=== PATIENT | male | born 2000 | race African-American/Black ===

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

== ENCOUNTER 2018-02-11 16:05 | Emergency (ER) | payer OTHER ==
[~2018-02-11] VITALS: Ht 172.7 cm; Wt 59.0 kg
[2018-02-11] MEDS ORDERED: NKM (16:14)
--- NOTE | 2018-02-11 16:58 | Diagnostic Imaging Report ---
Indication: Foreign body sensation in throat Technique: 2 views of the neck with soft tissue technique Comparison: none Findings: No prevertebral soft tissue swelling. No definite radiopaque foreign body demonstrated. Normal epiglottis. No evidence of glottic narrowing or hypopharyngeal distention. Impression: Negative. No evidence of radiopaque foreign body
--- NOTE | 2018-02-11 17:02 | Emergency Room Report ---
History of Present Illness General Chief Complaint: Foreign Body Source: Patient Present Illness HPI 17 YO male presents to the ED C/o 08/[address] since last night. Pt. describes a sharp FB sensation. pt. states pain worse with swallowing. Denies inability to swallow his own saliva. Pt. Denies fevers, chills MEDRANO, neck stiffness. Pt. reports initially thought it was mucus in his throat but after many attempts to clear it he has not been successful. Pt denies Nasal congestion or rhinorrhea. Pt. states pain did not occur after eating. it began when he was trying to sleep. Denies inability or difficulty breathing. Pt. denies loud breath sounds or inability to pass food. Denies swollen tender lymph nodes. Allergies: Coded Allergies: No Known Allergies (Unverified , 04/20/12) Patient History Past Medical History: see triage record Past Surgical History: none Pertinent Family History: none Reviewed Nursing Documentation: PMH: Agreed; PSxH: Agreed Nursing Documentation-PMH Hx Asthma: Yes Review of Systems All Other Systems: negative except mentioned in HPI Physical Exam Vital Signs Date Time Temp Pulse Resp B/P (MAP) Pulse Ox O2 Delivery O2 Flow Rate FiO2 02/11/18 16:09 98.2 78 16 108/62 96 Room Air Sp02 EP Interpretation: reviewed, normal General Appearance: no apparent distress, alert, GCS 15, non-toxic Head: normocephalic, atraumatic Eyes: bilateral eye normal inspection, bilateral eye PERRL ENT: hearing grossly normal, normal voice, uvula midline, moist mucus membranes , other - some mild pharyngeal erythema. Neck: full range of motion, other - no Stridor Respiratory: lungs clear, normal breath sounds, no respiratory distress, no accessory muscle use, no wheezing, speaking full sentences Cardiovascular #1: regular rate, rhythm Musculoskeletal: back normal, gait/station normal, normal range of motion, non- tender Neurologic: alert, oriented x3, responsive, motor strength/tone normal, sensory intact, speech normal, grossly normal Psychiatric: judgement/insight normal Skin: normal color, no rash, warm/dry, well hydrated Lymphatic: no adenopathy Medical Decision Making PA Attestation Dr. phillips is my supervising Physician whom patient management has been discussed with. Diagnostic Impression: Primary Impression: Sensation of foreign body in throat ER Course 17 YO male presents to the ED C/o 6/[address] since last night. Pt. describes a sharp FB sensation. pt. states pain worse with swallowing. Denies inability to swallow his own saliva. Pt. Denies fevers, chills MEDRANO, neck stiffness. Pt. reports initially thought it was mucus in his throat but after many attempts to clear it he has not been successful. Pt denies Nasal congestion or rhinorrhea. Pt. states pain did not occur after eating. it began when he was trying to sleep. Denies inability or difficulty breathing. Pt. denies loud breath sounds or inability to pass food. Denies swollen tender lymph nodes. Ddx considered but are not limited to: pharyngitis, strep, [employer], ludwigs angina, URI Vital signs: are WNL, pt. is afebrile H&PE are most consistent with: pharyngitis- due to mild erythema noted, no obvious fb visualized, will do imaging to confirm. Pt. is non-toxic in appearance, NAD, and oxygenating at 96% on RA. ORDERS: Soft Tissue Neck x-ray- no radiopaque FB or significant ST swelling per radiology. ED INTERVENTIONS: none required at this time. DISCHARGE: At this time pt. is stable for d/c to home. Will provide printed patient care instructions, and any necessary prescriptions. Care plan and follow up instructions have been discussed with the patient prior to discharge. Other X-Ray Diagnostic Results Other X-Ray Diagnostic Results : X-Ray ordered: Soft Tissues Neck # of Views/Limited Vs Complete: 2 View Indication: Pain EP Interpretation: Yes PA Xray: Interpretation reviewed, by supervising MD, and agrees with findings. Interpretation: no dislocation, no soft tissue swelling, no fractures, other - no radiopaque FB or significant ST swelling Impression: No acute disease Electronically Signed by: Lorin Mo PA-C Last Vital Signs Date Time Temp Pulse Resp B/P (MAP) Pulse Ox O2 Delivery O2 Flow Rate FiO2 02/11/18 16:09 98.2 78 16 108/62 96 Room Air Disposition: HOME, SELF-CARE Condition: Stable Scripts Lidocaine HCl 2% Viscous (Lidocaine HCl 2% Viscous) 100 Ml Solution 10 ML ORAL QID, #120 ML Prov: Lorin Mo 02/11/18 Guaifenesin (Guaifenesin) 1,200 Mg Tab.er.12h 1200 MG PO BID, #20 TAB Prov: Lorin Mo 02/11/18 Referrals: NON PHYSICIAN (PCP) Patient Instructions: Sore Throat, [id number] Additional Instructions: Take medications as directed. Follow up with a Primary Care Provider in 3-5 days, even if your symptoms have resolved. --Please review list of primary care clinics, if you do not already have a primary care provider If symptoms persist then you PCP may refer you to an Ears/Nose/Throat (ENT) Specialist. Return sooner to ED if new symptoms occur, or current symptoms become worse. - Please note that this Emergency Department Report was dictated using [employer] systems integrator technology software, occasionally this can lead to erroneous entry secondary to interpretation by the dictation equipment. Lorin Mo Feb 11, 2018 17:02
[2018-02-11] MEDS ORDERED: GUAIFENESIN1200 MG PO (17:04)
[2018-02-11] MEDS ORDERED: LIDOCAINE VISC100 ML ORAL (17:04)
[2018-02-11 17:16] VITALS: BP 111/64
[2018-02-11 17:18] VITALS: BP 111/64
== END 2018-02-11 17:18 | disposition home or self-care (01) ==
LOC: EMR 16:28
DX: R07.0 Pain in throat (principal)
CPT/HCPCS: 70360; 99283